=== PATIENT | male | born 1935 | race Caucasian/White ===

== ENCOUNTER 2021-09-28 13:34 | Inpatient (IN) ==
[2021-09-28 14:14] LABS: Basophils % 0.3 %; Hematocrit 40.6 % (37.5-50.1); Hemoglobin 14.2 g/dL (12.9-16.9); Immature Granulocytes % 1.1 % (0-4); Lymphocytes % 9.2 %; Mean Corpuscular Hemoglobin 31.8 pg (28.0-33.3); Mean Platelet Volume 11.1 fL (9.4-12.4); Monocytes # 0.5 K/mcL (0.0-1.3); Monocytes % 4.3 %; Neutrophils # 9.6 K/mcL (1.6-8.9); Platelet Count 228 K/mcL (140-400); Red Blood Count 4.46 M/mcL (4.19-5.50); Red Cell Distribution Width 12.7 % (11.5-14.5); Segmented Neutrophils % 85.1 %; White Blood Count 11.3 K/mcL (4.3-11.1)
[2021-09-28 14:30] LABS: Calcium 8.8 mg/dL (8.6-10.3); Potassium 3.3 mEq/L (3.5-5.1)
[2021-09-28 14:34] LABS: Troponin I 0.03 ng/mL (< 0.04)
[2021-09-28] MEDS: 0.9 % Sodium Chloride 1,000 ML IVC SCH ×2 (14:50→18:24)
[2021-09-28] MEDS ORDERED: Naloxone 0.4 MG/ML INJ IVP PRN (15:08)
[2021-09-28] MEDS ORDERED: Ondansetron 4 MG/2 ML VIAL IVP PRN (15:08)
[2021-09-28] MEDS ORDERED: Acetaminophen 325 MG TABLET PO PRN (15:08)
[2021-09-28] MEDS ORDERED: Dextrose Gel 15 GM/37.5 ML TUBE PO PRN ×2 (15:14)
[2021-09-28] MEDS ORDERED: *HR* Dextrose 50 % in Water (Syg) 50 ML SYRINGE IVP PRN (15:14)
[2021-09-28] MEDS ORDERED: D5% in Water 1,000 ML IVC PRN (15:14)
[2021-09-28] MEDS: Insulin LISPRO 300 UNITS/3 ML VIAL SUBQ SCH ×2 (18:06→21:45)
[2021-09-28] MEDS: Azithromycin 500 MG in 0.9 % Sodium Chloride 250 ML IVPB SCH (18:25)
[2021-09-28] MEDS: cefTRIAXone 1,000 MG in 0.9 % Sodium Chloride Mini Bag 100 ML IVPB SCH (18:26)
[2021-09-28] MEDS: Budesonide/Formoterol 160/4.5 1 PUFF INH IH SCH (21:12)
[2021-09-28] MEDS: NIFEdipine XL (24 HR) 60 MG TAB.ER.24 PO SCH (21:46)
[2021-09-29] MEDS: 0.9 % Sodium Chloride 1,000 ML IVC SCH ×3 (04:35→13:15)
[2021-09-29 06:34] LABS: Basophils % 0.2 %; Hemoglobin 13.1 g/dL (12.9-16.9); Immature Granulocytes % 0.7 % (0-4); Lymphocytes # 1.1 K/mcL (0.6-4.6); Mean Corpuscular HGB Conc 34.5 g/dL (31.6-35.5); Mean Corpuscular Hemoglobin 31.7 pg (28.0-33.3); Mean Platelet Volume 11.4 fL (9.4-12.4); Monocytes # 0.4 K/mcL (0.0-1.3); Monocytes % 3.2 %; Platelet Count 206 K/mcL (140-400); Red Blood Count 4.13 M/mcL (4.19-5.50); Red Cell Distribution Width 12.7 % (11.5-14.5); Segmented Neutrophils % 87.9 %; White Blood Count 13.6 K/mcL (4.3-11.1)
[2021-09-29 07:05] LABS: Calcium 8.1 mg/dL (8.6-10.3); Magnesium 2.2 mg/dL (1.6-2.6); Potassium 3.1 mEq/L (3.5-5.1)
[2021-09-29] MEDS: *HR* Rivaroxaban 15 MG TABLET PO SCH (09:11)
[2021-09-29] MEDS: NIFEdipine XL (24 HR) 60 MG TAB.ER.24 PO SCH ×2 (09:11→21:28)
[2021-09-29] MEDS: Insulin LISPRO 300 UNITS/3 ML VIAL SUBQ SCH ×4 (09:13→21:27)
[2021-09-29] MEDS: Budesonide/Formoterol 160/4.5 1 PUFF INH IH SCH ×2 (09:18→21:00)
[2021-09-29] MEDS: Dexamethasone Sodium Phos/PF 10 MG/ML VIAL IVP SCH (10:08)
[2021-09-29] MEDS: cefTRIAXone 1,000 MG in 0.9 % Sodium Chloride Mini Bag 100 ML IVPB SCH (15:18)
[2021-09-29] MEDS: Azithromycin 500 MG in 0.9 % Sodium Chloride 250 ML IVPB SCH (15:58)
[2021-09-30] MEDS: 0.9 % Sodium Chloride 1,000 ML IVC SCH (02:48)
[2021-09-30] MEDS: NIFEdipine XL (24 HR) 60 MG TAB.ER.24 PO SCH ×2 (08:55→21:45)
[2021-09-30] MEDS: *HR* Rivaroxaban 15 MG TABLET PO SCH (08:56)
[2021-09-30] MEDS: Dexamethasone Sodium Phos/PF 10 MG/ML VIAL IVP SCH (08:56)
[2021-09-30] MEDS: Insulin LISPRO 300 UNITS/3 ML VIAL SUBQ SCH ×4 (08:57→21:26)
[2021-09-30 09:26] LABS: Hemoglobin 13.2 g/dL (12.9-16.9); Mean Corpuscular HGB Conc 34.7 g/dL (31.6-35.5); Mean Corpuscular Volume 92.2 fL (83.0-100.0); Platelet Count 218 K/mcL (140-400); Red Blood Count 4.12 M/mcL (4.19-5.50); Red Cell Distribution Width 12.7 % (11.5-14.5); White Blood Count 15.2 K/mcL (4.3-11.1)
[2021-09-30 09:45] LABS: BUN/Creatinine Ratio 43 (6-26); Blood Urea Nitrogen 43 mg/dL (8-23); Calcium 8.2 mg/dL (8.6-10.3); Carbon Dioxide 24 mEq/L (23-29); Chloride 107 mEq/L (98-107); Glucose 189 mg/dL (70-105); Osmolality,Calculated 304 (280-300); Potassium 3.5 mEq/L (3.5-5.1); Sodium 139 mEq/L (136-145); eGFR For African Americans > 60 (> 60); eGFR For Non-African Americans > 60 (> 60)
[2021-09-30] MEDS: Budesonide/Formoterol 160/4.5 1 PUFF INH IH SCH ×2 (10:00→20:34)
[2021-09-30] MEDS: cefTRIAXone 1,000 MG in 0.9 % Sodium Chloride Mini Bag 100 ML IVPB SCH (16:11)
[2021-09-30] MEDS: Azithromycin 500 MG in 0.9 % Sodium Chloride 250 ML IVPB SCH (17:14)
[2021-10-01] MEDS: Insulin LISPRO 300 UNITS/3 ML VIAL SUBQ SCH ×4 (07:25→20:32)
[2021-10-01] MEDS: Dexamethasone Sodium Phos/PF 10 MG/ML VIAL IVP SCH (09:03)
[2021-10-01] MEDS: NIFEdipine XL (24 HR) 60 MG TAB.ER.24 PO SCH ×2 (09:04→20:32)
[2021-10-01] MEDS: *HR* Rivaroxaban 15 MG TABLET PO SCH (09:04)
[2021-10-01] MEDS: Budesonide/Formoterol 160/4.5 1 PUFF INH IH SCH ×2 (10:11→22:06)
[2021-10-01] MEDS: cefTRIAXone 1,000 MG in 0.9 % Sodium Chloride Mini Bag 100 ML IVPB SCH (16:45)
[2021-10-01] MEDS: Azithromycin 500 MG in 0.9 % Sodium Chloride 250 ML IVPB SCH (17:46)
[2021-10-02 07:45] LABS: Basophils % 0.1 %; Hematocrit 38.8 % (37.5-50.1); Hemoglobin 13.4 g/dL (12.9-16.9); Immature Granulocytes % 0.9 % (0-4); Lymphocytes # 0.6 K/mcL (0.6-4.6); Lymphocytes % 7.2 %; Mean Corpuscular HGB Conc 34.5 g/dL (31.6-35.5); Mean Corpuscular Hemoglobin 32.1 pg (28.0-33.3); Mean Corpuscular Volume 92.8 fL (83.0-100.0); Mean Platelet Volume 10.5 fL (9.4-12.4); Monocytes # 0.3 K/mcL (0.0-1.3); Monocytes % 3.5 %; Neutrophils # 7.5 K/mcL (1.6-8.9); Platelet Count 197 K/mcL (140-400); Red Blood Count 4.18 M/mcL (4.19-5.50); Red Cell Distribution Width 12.7 % (11.5-14.5); Segmented Neutrophils % 88.3 %; White Blood Count 8.5 K/mcL (4.3-11.1)
[2021-10-02 08:09] LABS: BUN/Creatinine Ratio 30 (6-26); Blood Urea Nitrogen 22 mg/dL (8-23); Calcium 7.9 mg/dL (8.6-10.3); Carbon Dioxide 25 mEq/L (23-29); Chloride 105 mEq/L (98-107); Glucose 117 mg/dL (70-105); Osmolality,Calculated 290 (280-300); Potassium 3.6 mEq/L (3.5-5.1); Sodium 138 mEq/L (136-145); eGFR For African Americans > 60 (> 60); eGFR For Non-African Americans > 60 (> 60)
[2021-10-02] MEDS: Insulin LISPRO 300 UNITS/3 ML VIAL SUBQ SCH ×2 (08:29→12:38)
[2021-10-02] MEDS: Dexamethasone Sodium Phos/PF 10 MG/ML VIAL IVP SCH (09:15)
[2021-10-02] MEDS: Calcium Gluconate 1gm/50mL 1 GM/50 ML BAG IVPB SCH ×2 (09:15→10:31)
[2021-10-02] MEDS: *HR* Rivaroxaban 15 MG TABLET PO SCH (09:24)
[2021-10-02] MEDS: NIFEdipine XL (24 HR) 60 MG TAB.ER.24 PO SCH (09:24)
[2021-10-02] MEDS: Budesonide/Formoterol 160/4.5 1 PUFF INH IH SCH (10:54)
[2021-10-02 11:23] VITALS: BP 146/65; PULSE 79; RESP 20; TEMP 97.2; O2SAT 90
[2021-10-02] MEDS: cefTRIAXone 1,000 MG in 0.9 % Sodium Chloride Mini Bag 100 ML IVPB SCH (15:19)
[2021-10-02] MEDS: Azithromycin 500 MG in 0.9 % Sodium Chloride 250 ML IVPB SCH (16:12)
== END 2021-10-02 16:40 | disposition other institution (70) | DRG 177 ==
LOC: INPPIK 13:34 → EMEROOPIK 13:34 → INPPIK 17:45
PROVIDERS: ADMIT Nurse Practitioner Family; ATTEND Nurse Practitioner Family

== ENCOUNTER 2021-10-02 15:09 | Inpatient (IN) ==
[2021-10-02] MEDS ORDERED: Albuterol 2.5 MG/3 ML NEBULIZER IH PRN (16:22)
[2021-10-02] MEDS ORDERED: Ipratropium 1 PUFF INHALER IH PRN (16:22)
[2021-10-02] MEDS ORDERED: Fluticasone Propionate Nasal 50 MCG/SPRAY BOTTLE NS PRN (16:48)
[2021-10-02] MEDS ORDERED: *HR* Dextrose 50 % in Water (Syg) 50 ML SYRINGE IVP PRN (17:36)
[2021-10-02] MEDS ORDERED: D5% in Water 1,000 ML IVC PRN (17:36)
[2021-10-02] MEDS ORDERED: Dextrose Gel 15 GM/37.5 ML TUBE PO PRN ×2 (17:36)
[2021-10-02 21:10] LABS: Estimated Average Glucose 154 mg/dl
[2021-10-02] MEDS: cephALEXin 500 MG CAPSULE PO SCH (21:23)
[2021-10-02] MEDS: NIFEdipine XL (24 HR) 60 MG TAB.ER.24 PO SCH (21:24)
[2021-10-02] MEDS: Insulin LISPRO 300 UNITS/3 ML VIAL SUBQ SCH (21:24)
[2021-10-03 07:17] LABS: Basophils % 0.1 %; Eosinophils % 0.1 %; Hemoglobin 12.9 g/dL (12.9-16.9); Lymphocytes # 0.9 K/mcL (0.6-4.6); Mean Corpuscular HGB Conc 34.9 g/dL (31.6-35.5); Mean Corpuscular Hemoglobin 32.2 pg (28.0-33.3); Mean Corpuscular Volume 92.3 fL (83.0-100.0); Mean Platelet Volume 10.4 fL (9.4-12.4); Monocytes # 0.4 K/mcL (0.0-1.3); Monocytes % 4.5 %; Neutrophils # 7.6 K/mcL (1.6-8.9); Platelet Count 188 K/mcL (140-400); Red Blood Count 4.01 M/mcL (4.19-5.50); Red Cell Distribution Width 12.3 % (11.5-14.5); Segmented Neutrophils % 84.3 %
[2021-10-03 07:35] LABS: BUN/Creatinine Ratio 24 (6-26); Blood Urea Nitrogen 16 mg/dL (8-23); Calcium 7.8 mg/dL (8.6-10.3); Carbon Dioxide 26 mEq/L (23-29); Chloride 103 mEq/L (98-107); Glucose 128 mg/dL (70-105); Osmolality,Calculated 283 (280-300); Potassium 3.6 mEq/L (3.5-5.1); Sodium 135 mEq/L (136-145); eGFR For African Americans > 60 (> 60); eGFR For Non-African Americans > 60 (> 60)
[2021-10-03] MEDS: NIFEdipine XL (24 HR) 60 MG TAB.ER.24 PO SCH ×2 (09:17→21:48)
[2021-10-03] MEDS: Lisinopril-HCTZ 20-12.5mg TABLET PO SCH (09:17)
[2021-10-03] MEDS: *HR* Rivaroxaban 10 MG TABLET PO SCH (09:17)
[2021-10-03] MEDS: cephALEXin 500 MG CAPSULE PO SCH ×3 (09:19→21:48)
[2021-10-03] MEDS: dexAMETHasone 4 MG TABLET PO SCH (09:21)
[2021-10-03] MEDS: Insulin LISPRO 300 UNITS/3 ML VIAL SUBQ SCH ×4 (09:22→21:49)
[2021-10-03] MEDS: Furosemide 20 MG TABLET PO SCH (22:05)
[2021-10-04] MEDS: *HR* Rivaroxaban 10 MG TABLET PO SCH (08:11)
[2021-10-04] MEDS: cephALEXin 500 MG CAPSULE PO SCH ×3 (08:11→20:27)
[2021-10-04] MEDS: dexAMETHasone 4 MG TABLET PO SCH (08:11)
[2021-10-04] MEDS: Lisinopril-HCTZ 20-12.5mg TABLET PO SCH (08:11)
[2021-10-04] MEDS: Insulin LISPRO 300 UNITS/3 ML VIAL SUBQ SCH ×4 (08:11→20:26)
[2021-10-04] MEDS: Furosemide 20 MG TABLET PO SCH (08:12)
[2021-10-04] MEDS: NIFEdipine XL (24 HR) 60 MG TAB.ER.24 PO SCH ×2 (08:12→20:27)
[2021-10-05] MEDS: Furosemide 20 MG TABLET PO SCH (09:14)
[2021-10-05] MEDS: NIFEdipine XL (24 HR) 60 MG TAB.ER.24 PO SCH ×2 (09:14→21:26)
[2021-10-05] MEDS: *HR* Rivaroxaban 10 MG TABLET PO SCH (09:14)
[2021-10-05] MEDS: Lisinopril-HCTZ 20-12.5mg TABLET PO SCH (09:15)
[2021-10-05] MEDS: dexAMETHasone 4 MG TABLET PO SCH (09:15)
[2021-10-05] MEDS: Insulin LISPRO 300 UNITS/3 ML VIAL SUBQ SCH ×4 (09:15→21:26)
[2021-10-06] MEDS: Insulin LISPRO 300 UNITS/3 ML VIAL SUBQ SCH ×4 (07:27→20:54)
[2021-10-06] MEDS: *HR* Rivaroxaban 10 MG TABLET PO SCH (07:48)
[2021-10-06] MEDS: Lisinopril-HCTZ 20-12.5mg TABLET PO SCH (07:48)
[2021-10-06] MEDS: Furosemide 20 MG TABLET PO SCH (07:49)
[2021-10-06] MEDS: dexAMETHasone 4 MG TABLET PO SCH (07:49)
[2021-10-06] MEDS: NIFEdipine XL (24 HR) 60 MG TAB.ER.24 PO SCH ×2 (07:49→20:54)
[2021-10-07 08:55] LABS: Hematocrit 40.7 % (37.5-50.1); Hemoglobin 13.9 g/dL (12.9-16.9); Mean Corpuscular HGB Conc 34.2 g/dL (31.6-35.5); Mean Corpuscular Hemoglobin 31.6 pg (28.0-33.3); Mean Corpuscular Volume 92.5 fL (83.0-100.0); Mean Platelet Volume 10.3 fL (9.4-12.4); Platelet Count 267 K/mcL (140-400); White Blood Count 11.7 K/mcL (4.3-11.1)
[2021-10-07 09:08] LABS: BUN/Creatinine Ratio 30 (6-26); Blood Urea Nitrogen 24 mg/dL (8-23); Calcium 8.1 mg/dL (8.6-10.3); Carbon Dioxide 28 mEq/L (23-29); Chloride 98 mEq/L (98-107); Glucose 175 mg/dL (70-105); Osmolality,Calculated 284 (280-300); Sodium 133 mEq/L (136-145); eGFR For African Americans > 60 (> 60); eGFR For Non-African Americans > 60 (> 60)
[2021-10-07] MEDS: dexAMETHasone 4 MG TABLET PO SCH (10:12)
[2021-10-07] MEDS: Lisinopril-HCTZ 20-12.5mg TABLET PO SCH (10:13)
[2021-10-07] MEDS: NIFEdipine XL (24 HR) 60 MG TAB.ER.24 PO SCH ×2 (10:13→21:39)
[2021-10-07] MEDS: Furosemide 20 MG TABLET PO SCH (10:13)
[2021-10-07] MEDS: Insulin LISPRO 300 UNITS/3 ML VIAL SUBQ SCH ×4 (10:14→22:31)
[2021-10-07] MEDS: *HR* Rivaroxaban 10 MG TABLET PO SCH (10:14)
[2021-10-07 22:38] LABS: C-Reactive Protein 85 mg/L (Less than 10)
[2021-10-08] MEDS: Insulin LISPRO 300 UNITS/3 ML VIAL SUBQ SCH ×4 (09:48→22:36)
[2021-10-08] MEDS: *HR* Rivaroxaban 10 MG TABLET PO SCH (10:06)
[2021-10-08] MEDS: NIFEdipine XL (24 HR) 60 MG TAB.ER.24 PO SCH ×2 (10:06→20:39)
[2021-10-08] MEDS: Lisinopril-HCTZ 20-12.5mg TABLET PO SCH (10:06)
[2021-10-08] MEDS: Furosemide 20 MG TABLET PO SCH (10:07)
[2021-10-09] MEDS: Furosemide 20 MG TABLET PO SCH (10:22)
[2021-10-09] MEDS: *HR* Rivaroxaban 10 MG TABLET PO SCH (10:22)
[2021-10-09] MEDS: Lisinopril-HCTZ 20-12.5mg TABLET PO SCH ×2 (10:22→10:58)
[2021-10-09] MEDS: NIFEdipine XL (24 HR) 60 MG TAB.ER.24 PO SCH ×3 (10:22→21:11)
[2021-10-09] MEDS: Insulin LISPRO 300 UNITS/3 ML VIAL SUBQ SCH ×4 (10:23→22:56)
[2021-10-10] MEDS: *HR* Rivaroxaban 10 MG TABLET PO SCH (08:52)
[2021-10-10] MEDS: NIFEdipine XL (24 HR) 60 MG TAB.ER.24 PO SCH ×2 (08:53→21:22)
[2021-10-10] MEDS: Insulin LISPRO 300 UNITS/3 ML VIAL SUBQ SCH ×4 (08:53→21:35)
[2021-10-10] MEDS: Furosemide 20 MG TABLET PO SCH (08:53)
[2021-10-10] MEDS: Lisinopril-HCTZ 20-12.5mg TABLET PO SCH (08:54)
[2021-10-11] MEDS: Insulin LISPRO 300 UNITS/3 ML VIAL SUBQ SCH ×4 (07:34→21:55)
[2021-10-11] MEDS: Lisinopril-HCTZ 20-12.5mg TABLET PO SCH (08:50)
[2021-10-11] MEDS: *HR* Rivaroxaban 10 MG TABLET PO SCH (08:51)
[2021-10-11] MEDS: NIFEdipine XL (24 HR) 60 MG TAB.ER.24 PO SCH ×2 (08:51→21:55)
[2021-10-11] MEDS: Furosemide 20 MG TABLET PO SCH (08:51)
[2021-10-12] MEDS: Insulin LISPRO 300 UNITS/3 ML VIAL SUBQ SCH ×4 (08:43→21:52)
[2021-10-12] MEDS: NIFEdipine XL (24 HR) 60 MG TAB.ER.24 PO SCH ×2 (10:33→21:50)
[2021-10-12] MEDS: Furosemide 20 MG TABLET PO SCH (10:33)
[2021-10-12] MEDS: *HR* Rivaroxaban 10 MG TABLET PO SCH (10:33)
[2021-10-12] MEDS: Lisinopril-HCTZ 20-12.5mg TABLET PO SCH (10:34)
[2021-10-13] MEDS: Insulin LISPRO 300 UNITS/3 ML VIAL SUBQ SCH ×4 (07:36→20:47)
[2021-10-13] MEDS: *HR* Rivaroxaban 10 MG TABLET PO SCH (08:09)
[2021-10-13] MEDS: Lisinopril-HCTZ 20-12.5mg TABLET PO SCH (08:09)
[2021-10-13] MEDS: Furosemide 20 MG TABLET PO SCH (08:09)
[2021-10-13] MEDS: NIFEdipine XL (24 HR) 60 MG TAB.ER.24 PO SCH ×2 (08:09→20:54)
[2021-10-14] MEDS: Insulin LISPRO 300 UNITS/3 ML VIAL SUBQ SCH ×4 (08:56→20:09)
[2021-10-14] MEDS: NIFEdipine XL (24 HR) 60 MG TAB.ER.24 PO SCH ×2 (08:57→20:07)
[2021-10-14] MEDS: Lisinopril-HCTZ 20-12.5mg TABLET PO SCH (08:57)
[2021-10-14] MEDS: *HR* Rivaroxaban 10 MG TABLET PO SCH (08:57)
[2021-10-14] MEDS: Furosemide 20 MG TABLET PO SCH (08:57)
[2021-10-15] MEDS: Insulin LISPRO 300 UNITS/3 ML VIAL SUBQ SCH ×4 (07:39→20:12)
[2021-10-15] MEDS: NIFEdipine XL (24 HR) 60 MG TAB.ER.24 PO SCH ×2 (08:57→20:12)
[2021-10-15] MEDS: Lisinopril-HCTZ 20-12.5mg TABLET PO SCH (08:57)
[2021-10-15] MEDS: Furosemide 20 MG TABLET PO SCH (08:57)
[2021-10-15] MEDS: *HR* Rivaroxaban 10 MG TABLET PO SCH (08:57)
[2021-10-16] MEDS: Insulin LISPRO 300 UNITS/3 ML VIAL SUBQ SCH ×4 (07:26→20:51)
[2021-10-16] MEDS: *HR* Rivaroxaban 10 MG TABLET PO SCH (07:56)
[2021-10-16] MEDS: Lisinopril-HCTZ 20-12.5mg TABLET PO SCH (07:57)
[2021-10-16] MEDS: Furosemide 20 MG TABLET PO SCH (07:57)
[2021-10-16] MEDS: NIFEdipine XL (24 HR) 60 MG TAB.ER.24 PO SCH ×2 (07:57→20:01)
[2021-10-17] MEDS: Insulin LISPRO 300 UNITS/3 ML VIAL SUBQ SCH ×4 (08:44→20:35)
[2021-10-17] MEDS: *HR* Rivaroxaban 10 MG TABLET PO SCH (08:50)
[2021-10-17] MEDS: Furosemide 20 MG TABLET PO SCH (08:50)
[2021-10-17] MEDS: Lisinopril-HCTZ 20-12.5mg TABLET PO SCH (08:50)
[2021-10-17] MEDS: NIFEdipine XL (24 HR) 60 MG TAB.ER.24 PO SCH ×2 (08:50→20:38)
[2021-10-18] MEDS: Insulin LISPRO 300 UNITS/3 ML VIAL SUBQ SCH ×4 (07:28→20:50)
[2021-10-18] MEDS: *HR* Rivaroxaban 10 MG TABLET PO SCH (09:38)
[2021-10-18] MEDS: Furosemide 20 MG TABLET PO SCH (09:38)
[2021-10-18] MEDS: Lisinopril-HCTZ 20-12.5mg TABLET PO SCH (09:38)
[2021-10-18] MEDS: NIFEdipine XL (24 HR) 60 MG TAB.ER.24 PO SCH ×2 (09:38→20:40)
[2021-10-19] MEDS: Insulin LISPRO 300 UNITS/3 ML VIAL SUBQ SCH ×4 (07:31→20:33)
[2021-10-19] MEDS: NIFEdipine XL (24 HR) 60 MG TAB.ER.24 PO SCH ×2 (07:40→20:36)
[2021-10-19] MEDS: Lisinopril-HCTZ 20-12.5mg TABLET PO SCH (07:40)
[2021-10-19] MEDS: *HR* Rivaroxaban 10 MG TABLET PO SCH (07:40)
[2021-10-19] MEDS: Furosemide 20 MG TABLET PO SCH (07:40)
[2021-10-20] MEDS: NIFEdipine XL (24 HR) 60 MG TAB.ER.24 PO SCH ×2 (08:57→20:59)
[2021-10-20] MEDS: Lisinopril-HCTZ 20-12.5mg TABLET PO SCH (08:57)
[2021-10-20] MEDS: *HR* Rivaroxaban 10 MG TABLET PO SCH (08:58)
[2021-10-20] MEDS: Insulin LISPRO 300 UNITS/3 ML VIAL SUBQ SCH ×4 (08:58→20:54)
[2021-10-20] MEDS: Furosemide 20 MG TABLET PO SCH (08:58)
[2021-10-21 07:26] VITALS: BP 133/69; PULSE 74; RESP 17; TEMP 98.3; O2SAT 96
[2021-10-21] MEDS: Insulin LISPRO 300 UNITS/3 ML VIAL SUBQ SCH (07:56)
[2021-10-21] MEDS: NIFEdipine XL (24 HR) 60 MG TAB.ER.24 PO SCH (08:07)
[2021-10-21] MEDS: *HR* Rivaroxaban 10 MG TABLET PO SCH (08:07)
[2021-10-21] MEDS: Lisinopril-HCTZ 20-12.5mg TABLET PO SCH (08:08)
[2021-10-21] MEDS: Furosemide 20 MG TABLET PO SCH (08:08)
== END 2021-10-21 10:35 | disposition home health service (06) | DRG 177 ==
LOC: INPPIK 16:41
PROVIDERS: ADMIT Internal Medicine; ATTEND Internal Medicine